=== PATIENT | female | born 1980 | race Caucasian/White ===

== ENCOUNTER 2021-01-13 16:31 | Outpatient (REF) | payer MEDICARE, MEDICAID, SELFPAY ==
--- NOTE | ~2021-01-13 | XR_ITS ---
EXAMINATION: XR TIBIA AND FIBULA, LEFT CLINICAL INFORMATION: M79.605 - Pain in left leg COMPARISON: None TECHNIQUE: AP and lateral views of the left tibia and fibula were obtained. IT issues at time of exam. Preliminary report provided 01/13/2021 at 1723 hours. FINDINGS: There is mild medial bowing mid fibular shaft on the AP view. There is no visible fracture line or fracture fragment or dislocation. Bony mineralization is normal. No periostitis or destructive process. Surrounding soft tissues are unremarkable. XR/XR tibia fibula LT 2V IMPRESSION: Mild medial bowing mid fibular shaft. No visible fracture or dislocation or destructive process.
== END 2021-01-13 16:32 | disposition home or self-care (01) ==
LOC: HO.HMGCX 16:31
PROVIDERS: Visit Provider Hospitalist
DX: M79.605 Pain in left leg (principal)
CPT/HCPCS: 73590

== ENCOUNTER 2022-03-28 14:53 | Emergency (ER) | payer OTHER, SELFPAY ==
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
[2022-03-28 15:14] VITALS: BP 101/44; PULSE 74; RESP 16; TEMP 36.6; O2SAT 100
== END 2022-03-28 16:25 | disposition home or self-care (01) ==
PROVIDERS: Emergency Provider Emergency Medicine
DX: R51.9 Headache, unspecified (principal)
CPT/HCPCS: 99282; 99283

== ENCOUNTER 2022-04-17 09:23 | Emergency (ER) | payer OTHER, SELFPAY ==
[2022-04-17 11:58] VITALS: BP 103/60; PULSE 60; RESP 16; TEMP 37; O2SAT 96; BMI 21.4
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
== END 2022-04-17 16:03 | disposition home or self-care (01) ==
PROVIDERS: Emergency Provider Internal Medicine; PCP Internal Medicine
DX: Z04.1 Encounter for examination and observation following transport accident (principal); M79.10 Myalgia, unspecified site; F41.9 Anxiety disorder, unspecified
CPT/HCPCS: 99282; 99283

== ENCOUNTER 2023-02-26 12:55 | Outpatient (AMB) | payer MEDICARE, MEDICAID, SELFPAY ==
[2023-02-26 13:43] VITALS: BP 100/68; PULSE 92; TEMP 36.9; O2SAT 100
--- NOTE | 2023-02-26 13:43 | MHC.OFFWIV ---
Intake Vital Signs 02/26/23 13:43 Height 5 ft 2 in BP 100/68 Blood Pressure Location Lt brachial Position Sitting Pulse 92 Pulse Source Pulse Oximeter Temp 98.5 F Temp Source Oral Pulse Oximetry (%) 100 Oxygen Delivery Method Room Air Intake Visit Reasons: EP ?UTI, Body ache, Fever, Puss Urine [phone] Patient Tobacco Use Status: Never used Tobacco Allergies albuterol [From VENTOLIN HFA] Allergy (Unknown, Verified 02/26/23 13:45) UNKNOWN carbamazepine [From TEGRETOL] Allergy (Unknown, Verified 02/26/23 13:45) UNKNOWN Do you need a note to return to daycare/school/sports/work: No HPI HPI Comments History of Present Illness Details For 42-year-old female presents to the office for a sick visit accompanied my her mother. Her mother is giving all history. The patient is deaf and legally blind and has developmental difficulties. According to the mom, patient has been complaining of burning urination for the past 5 days. Occasional fevers without any chills. She is also complaining of back pain. [facility] Social History Patient Tobacco Use Status: Never used Tobacco Physical Exam Vital Signs: Last Vital Signs Temp 98.5 F 02/26/23 13:43 Pulse 92 02/26/23 13:43 BP 100/68 02/26/23 13:43 Pulse Ox 100 02/26/23 13:43 Oxygen Delivery Method Room Air 02/26/23 13:43 General: Yes bladder normal to palpation and Yes no CVA tenderness Bimanual exam- vagina & uterus: bladder normal to palpation Back/Spine/Pelvis Back: no CVA tenderness Results AMB Urinalysis, Automated UA Leukoctes 70 Alayna/uL Last Edit by Suzy Gutierrez CMA on 02/26/23 14:17 UA Nitrite Negative Last Edit by Suzy Gutierrez CMA on 02/26/23 14:17 UA Urobilinogen 0.2 mg/dL Last Edit by Suzy Gutierrez CMA on 02/26/23 14:17 UA Protein 0 mg/dL Last Edit by Suzy Gutierrez CMA on 02/26/23 14:17 UA pH 8.5 Last Edit by Suzy Gutierrez CMA on 02/26/23 14:17 UA Blood 200 Raheem/uL Last Edit by Suzy Gutierrez, ESVIN on 02/26/23 14:17 UA Specific [place] 1.010 Last Edit by Suzy Gutierrez, ESVIN on 02/26/23 14:17 UA Ketone Negative Last Edit by Suzy Gutierrez, ESVIN on 02/26/23 14:17 UA Bilirubin 0 mg/dL Last Edit by Suzy Gutierrez, ESVIN on 02/26/23 14:17 UA Glucose 0 mg/dL Last Edit by Suzy Gutierrez, ESVIN on 02/26/23 14:17 Results Reviewed Results Reviewed: Laboratory Last Values Urine pH (Auto) 8.5 02/26/23 14:16 Specific [place] (Auto) 1.010 02/26/23 14:16 Urine Protein (Auto) 0 mg/dL 02/26/23 14:16 Glucose (UA)(Auto) 0 mg/dL 02/26/23 14:16 Urine Ketones (Auto) Negative 02/26/23 14:16 Urine Blood (Auto) 200 Raheem/uL 02/26/23 14:16 Urine Nitrite (Auto) Negative 02/26/23 14:16 Urine Bilirubin (Auto) 0 mg/dL 02/26/23 14:16 Urine Urobilinogen (Auto) 0.2 mg/dL 02/26/23 14:16 Leukocyte Esterase (Auto) 70 Alayna/uL 02/26/23 14:16 Assessment & Plan Assessment & Plan (1) Urinary tract infection: Code(s): N39.0 - Urinary tract infection, site not specified Plan: Antibiotic and Pyridium called in. Increase fluid intake. If symptoms do not improve to follow-up here. Orders: Orders AMB Urinalysis Automated Today Z13.9 - Encounter for screening, unspecified Coding Level of Care Code Est Pt Level 3 (35691) Diagnoses Urinary tract infection N39.0
== END 2023-02-26 15:14 | disposition home or self-care (01) ==
PROVIDERS: PCP Internal Medicine; Visit Provider Internal Medicine
DX: N39.0 Urinary tract infection, site not specified (principal); R30.9 Painful micturition, unspecified
CPT/HCPCS: 81003; 99213

== ENCOUNTER 2023-03-03 23:30 | Emergency (ER) | payer MEDICARE, MEDICAID, SELFPAY ==
--- NOTE | ~2023-03-03 | XR_ITS ---
EXAMINATION: XR ABDOMEN KUB CLINICAL INDICATION: Constipation. COMPARISON: None available. TECHNIQUE: AP view of the abdomen. FINDINGS: The bowel gas pattern is normal with no evidence of ileus or obstruction. There is retained stool throughout. No unusual soft tissue calcifications are noted. The bones are unremarkable. XR/XR KUB IMPRESSION: Nonspecific bowel gas pattern. Retained stool throughout.
[2023-03-03 23:39] VITALS: BP 100/55; PULSE 71; RESP 18; TEMP 36.3; O2SAT 100
[2023-03-03 23:41] VITALS: BP 100/55; BP 110/76; PULSE 71; PULSE 78; RESP 20; TEMP 36.3; O2SAT 100; O2SAT 98; BMI 23.6
[2023-03-04 00:08] LABS: Hematocrit 35.3 % (37.0-47.0); Hemoglobin 12.2 g/dl (12.0-16.0); Mean Corpuscular HGB Conc 34.6 g/dl (31.0-35.0); Mean Corpuscular Hemoglobin 29.9 pg (27.0-33.0); Mean Corpuscular Volume 86.5 fL (80.0-98.0); Mean Platelet Volume 11.5 fL (9.4-12.3); Platelet Count 110 X10*3/uL (160-400); Red Blood Count 4.08 X10*6/uL (4.20-5.50); Red Cell Distribution Width 12.2 % (11.0-16.0); White Blood Count 7.1 X10*3/uL (4.8-10.8)
[2023-03-04 01:27] LABS: Alanine Aminotransferase 5 U/L (0-31); Albumin Level 4.1 g/dL (3.5-5.0); Alkaline Phosphatase 73 U/L (39-117); Anion Gap 11 (12-20); Aspartate Amino Transferase 16 U/L (5-31); Bilirubin Total 0.4 mg/dL (0.0-1.0); Blood Urea Nitrogen 20 mg/dL (9-16); Calcium 9.3 mg/dL (8.4-10.2); Carbon Dioxide 21 mmol/L (22-29); Chloride 110 mmol/L (96-108); Creatinine Clr Calc Pharmacy 69.6; Estimated Glomerular Filt Rate > 60; Glucose Random 113 mg/dL (60-115); Potassium 3.8 mmol/L (3.3-5.1); Sodium 138 mmol/L (135-145); Total Protein 6.3 g/dL (6.5-8.0)
[2023-03-04 02:12] VITALS: BP 99/50; PULSE 66; RESP 18; TEMP 36.2; O2SAT 97
[2023-03-04 02:16] LABS: Appearance Urine Clear; Color Urine Yellow; Glucose Urine UA Negative (Negative); Leukocyte Esterase Urine Negative (Negative); Nitrite Urine Negative (Negative); PH 5.5 (5.0-9.0); Specific Gravity - Urine 1.025 (1.005-1.025); Urine Blood Negative (Negative); Urine Ketones 15 mg/dL (Negative); Urine Protein Negative (Neg-Trace)
[2023-03-04 02:21] LABS: Bacteria Urine None Seen (None Seen); Hyaline Casts Urine 0-2 /LPF (0-2); RBC Urine 0-2 /HPF (0-2); Squamous Epithelial Cell Urine 0-2 /HPF (0-2); WBC Urine 0-5 /HPF (0-5)
[2023-03-04 03:47] VITALS: BP 115/59; PULSE 66; RESP 18; TEMP 36.3; O2SAT 98
--- NOTE | 2023-03-04 03:54 | ED_ITS ---
HPI - General Adult General Chief complaint: General Medical Stated complaint: N/V Time Seen by Provider: 03/04/23 03:40 Source: patient and family Mode of arrival: ambulatory Limitations: no limitations History of Present Illness HPI narrative: Patient comes emergency room accompanied by her mother. Patient has d evelopmental delay. The mother explains that the patient has been complaining of dysuria. For about 5 days, patient has been taking Bactrim. Patient denies fever chills. Yesterday had several episodes of vomiting, no diarrhea. Also, patient complaining of constipation Related Data Home Medications Medication Instructions Recorded Confirmed multivitamin 1 tab PO DAILY 01/13/21 10/26/22 acetaminophen 650 mg 650 mg PO Q8H PRN pain 11/25/22 tablet,extended release azelastine 137 mcg (0.1 %) nasal intranasal 11/25/22 spray aerosol cetirizine 10 mg tablet 10 mg PO DAILY 11/25/22 cholecalciferol (vitamin D3) 25 25 mcg PO DAILY 11/25/22 mcg (1,000 unit) tablet (Vitamin D3) ciprofloxacin 0.3 %-dexamethasone 4 drp otic (ears) BID 11/25/22 0.1 % ear drops,suspension Previous Rx's Medication Instructions Recorded cyclobenzaprine 10 mg tablet 10 mg PO Q8H Muscular skeletal 04/17/22 pain #14 tabs fluconazole 150 mg tablet 150 mg PO DAILY 1 day #1 tab 11/25/22 (Diflucan) phenazopyridine 200 mg tablet 200 mg PO TID 3 days #9 tabs 02/26/23 (Pyridium) sulfamethoxazole 800 1 tab PO BID 7 days #14 tabs 02/26/23 mg-trimethoprim 160 mg tablet (Bactrim DS) ondansetron HCl 4 mg tablet 4 mg PO Q6H PRN nausea and 03/04/23 vomiting #14 tabs polyethylene glycol 3350 17 17 g PO BID PRN laxative effect 03/04/23 gram/dose oral powder (Miralax) #238 grams Allergies Allergy/AdvReac Type Severity Reaction Status Date / Time albuterol [From VENTOLIN HFA] Allergy Unknown UNKNOWN Verified 02/26/23 13:45 carbamazepine [From TEGRETOL] Allergy Unknown UNKNOWN Verified 02/26/23 13:45 Review of Systems Review of Systems: Constitutional : No Weight loss, No Fever, No Chills, No Night Sweats, No Fatigue, No Malaise ENT/Mouth : No Hearing loss, No Ear Pain, No Nasal Congestion, No Sinus Pain, No Hoarseness, No sore throat, No Rhinorrhea, No Swallowing Difficulty Eyes: No Eye Pain, No Swelling, No Redness, No Foreign Body, No Discharge, No Vision Changes Cardiovascular : No Chest Pain, No SOB, No Dyspnea on Exertion, No Orthopnea, No Edema, No Palpitations Respiratory : No Cough, No Sputum, No Wheezing, No Smoke Exposure, No Dyspnea Gastrointestinal : Complaining of nausea vomiting, no diarrhea, complaining of constipation, no significant abdominal pain Genitourinary : no irregular bleeding, No Dysuria, No Urinary Frequency, No Hematuria, No Urinary Incontinence, No Urgency, No Flank Pain, No Urinary Flow Changes, No Hesitancy Musculoskeletal : No joint pain, No Myalgias, No Joint Swelling Skin : No Skin Lesions, No rash Neuro : No Weakness, No Numbness, No Paresthesias, No Loss of Consciousness, No Dizziness, No Headache Psych : No Anxiety/Panic, No Depression, No SI/HI/AH/VH, No Social Issues, Heme/Lymph: No Bruising, No Bleeding,No Lymphadenopathy Endocrine : No Polyuria, No Polydipsia, No Temperature Intolerance [facility] Past Medical History Medical History (Updated 03/04/23 @ 05:18 by Johanny Moy MD) Cognitive developmental delay Epilepsy Social History Social History Patient Tobacco Use Status: Never used Tobacco Advance Directives: No Advance Directives Information Provided: No Physical Exam ED Vital Signs: Vital Signs - 24 hr 03/03/23 23:39 03/03/23 23:41 03/04/23 02:12 Temperature 97.3 F 97.3 F 97.1 F Pulse Rate 71 71 66 Respiratory Rate 18 20 18 Blood Pressure 100/55 L 100/55 L 99/50 L Pulse Oximetry 100 100 97 Oxygen Delivery Method Room Air Room Air Room Air 03/04/23 03:47 Temperature 97.3 F Pulse Rate 66 Respiratory Rate 18 Blood Pressure 115/59 L Pulse Oximetry 98 Oxygen Delivery Method Room Air BMI result Body Mass Index 23.6 Const Other: Appearance: Alert. Oriented X3. No acute distress. Patient well-appearing Eyes: Pupils equal, round and reactive to light. ENT: Pharynx normal. Neck: Normal inspection. Neck supple. No lymph nodes noted. No crepitus CVS: Normal heart rate and rhythm. Pulses normal. Normal S1 and S2 Respiratory: No respiratory distress. Breath sounds normal. No Wheezing. No rales Abdomen: Soft, no rigidity, distention, does not seem to have any tenderness on palpation Skin: Skin warm and dry. Normal skin color. Normal skin turgor. Extremities: No lower extremity edema. No Lacerations. No Rash Neuro: Oriented X 3. No motor deficit. No sensory deficit. Moving all extremities. No slurred speech. CN 2 through 12 grossly intact Psych: calm, cooperative, normal affect Medications Administered Discontinued Medications Generic Name Dose Route Start Last Admin Trade Name Freq PRN Reason Stop Dose Admin Ondansetron HCl 4 mg 03/04/23 04:00 03/04/23 04:40 Ondansetron Odt 4 Mg Tab.Rapdis TRANSLINGU 03/04/23 04:01 4 mg ONCE ONE Administration Medical Decision Making Medical Decision Making [facility] Narrative: -I discussed the labs with the patient and her mother, patient's white blood cell count is normal, no significant abnormality on chemistry, urinalysis is negative for UTI -patient instructed to continue taking Bactrim, patient has already had 5 days Bactrim, urine is clear of infection -patient given sublingual Zofran for nausea vomiting -KUB my interpretation: Significant amount of stool in the proximal aspect of the colon, no bowel obstruction pattern -patient only takes stool softeners, does not drink enough water, discussed with the patient and her mother that we will try this time MiraLax and she will need to drink more water for this to work both agree with plan. Differential Diagnosis Differential Diagnoses: The differential diagnosis associated with the presentation includes (Viral gastroenteritis, medication side effect, constipation) Lab Data [facility] Lab Attestation statement: I reviewed the patient's lab results. 03/04/23 00:01 03/04/23 00:01 Labs: Lab Results 03/04/23 03/04/23 03/04/23 Range/Units 00:01 00:01 02:08 WBC 7.1 (4.8-10.8) X10*3/uL RBC 4.08 L (4.20-5.50) X10*6/uL Hgb 12.2 (12.0-16.0) g/dl Hct 35.3 L (37.0-47.0) % MCV 86.5 (80.0-98.0) fL MCH 29.9 (27.0-33.0) pg MCHC 34.6 (31.0-35.0) g/dl RDW 12.2 (11.0-16.0) % Plt Count 110 L (160-400) X10*3/uL MPV 11.5 (9.4-12.3) fL Absolute Nucleated RBC 0.000 (0.0-0.012) X10*3/uL Nucleated RBC % (auto) 0.0 (0.0-0.2) /100WBC Sodium 138 (135-145) mmol/L Potassium 3.8 (3.3-5.1) mmol/L Chloride 110 H (96-108) mmol/L Carbon Dioxide 21 L (22-29) mmol/L Anion Gap 11 L (12-20) BUN 20 H (9-16) mg/dL Creatinine 0.81 (0.5-1.4) mg/dL Estim Creat Clear Calc 69.6 Estimated GFR > 60 Random Glucose 113 (60-115) mg/dL Calcium 9.3 (8.4-10.2) mg/dL Total Bilirubin 0.4 (0.0-1.0) mg/dL AST 16 (5-31) U/L ALT 5 (0-31) U/L Alkaline Phosphatase 73 (39-117) U/L Total Protein 6.3 L (6.5-8.0) g/dL Albumin 4.1 (3.5-5.0) g/dL Urine Color Yellow Urine Appearance Clear Urine pH 5.5 (5.0-9.0) Ur Specific [place] 1.025 (1.005-1.025) Urine Protein Negative (Neg-Trace) mg/dL Urine Glucose (UA) Negative (Negative) mg/dL Urine Ketones 15 (Negative) mg/dL Urine Blood Negative (Negative) Urine Nitrite Negative (Negative) Ur Leukocyte Esterase Negative (Negative) Urine RBC 0-2 (0-2) /HPF Urine WBC 0-5 (0-5) /HPF Ur Squamous Epith Cells 0-2 (0-2) /HPF Urine Bacteria None Seen (None Seen) Hyaline Casts 0-2 (0-2) /LPF Independent Interpretation I performed an independent interpretation of an: Plain X-Ray Radiology Impression Discussion of test interpretation with radiology: I have reviewed the radiologist's reading. Radiologist Impression: INDINGS: The bowel gas pattern is normal with no evidence of ileus or obstruction. There is retained stool throughout. No unusual soft tissue calcifications are noted. The bones are unremarkable. XR/XR KUB IMPRESSION: Nonspecific bowel gas pattern. ? Retained stool throughout. Discharge Plan Discharge Clinical Impression: Constipation Patient Disposition: Home, Self-Care Instructions: Constipation (ED), Acute Nausea and Vomiting (ED) Additional Instructions: Please follow-up with your primary care physician tomorrow. If you have any worsening or new symptoms, please return to the emergency room or call 911 Prescriptions: New polyethylene glycol 3350 [Miralax] 17 gram/dose powder 17 g PO BID PRN (Reason: laxative effect) Qty: 238 2RF ondansetron HCl 4 mg tablet 4 mg PO Q6H PRN (Reason: nausea and vomiting) Qty: 14 0RF No Action cyclobenzaprine 10 mg tablet 10 mg PO Q8H Qty: 14 0RF multivitamin Tablet 1 tab PO DAILY cholecalciferol (vitamin D3) [Vitamin D3] 25 mcg (1,000 unit) tablet 25 mcg PO DAILY cetirizine 10 mg tablet 10 mg PO DAILY azelastine 137 mcg (0.1 %) aerosol,spray intranasal acetaminophen 650 mg tablet extended release 650 mg PO Q8H PRN (Reason: pain) ciprofloxacin-dexamethasone 0.3-0.1 % drops,suspension 4 drp otic (ears) BID fluconazole [Diflucan] 150 mg tablet 150 mg PO DAILY 1 Days Qty: 1 0RF sulfamethoxazole-trimethoprim [Bactrim DS] 800-160 mg tablet 1 tab PO BID 7 Days Qty: 14 0RF phenazopyridine [Pyridium] 200 mg tablet 200 mg PO TID 3 Days Qty: 9 0RF
[2023-03-04] MEDS: Ondansetron ODT 4 MG TAB.RAPDIS TRANSLINGU (04:40)
--- NOTE | 2023-03-04 05:48 | PC.NURSE ---
pt mother at bedside. pt calm and cooperative. pt reports feeling better at time of discharge. pt provided with discharge packet. pt mother verbalized understanding of discharge plan
== END 2023-03-04 05:50 | disposition home or self-care (01) ==
PROVIDERS: Emergency Provider Emergency Medicine; PCP Internal Medicine
DX: K59.00 Constipation, unspecified (principal); R62.50 Unspecified lack of expected normal physiological development in childhood; R11.2 Nausea with vomiting, unspecified; Z79.899 Other long term (current) drug therapy
CPT/HCPCS: 36415; 74018; 80053; 81001; 85027; 99284

== ENCOUNTER 2023-07-20 10:18 | Outpatient (AMB) | payer MEDICARE, MEDICAID, SELFPAY ==
[2023-07-20 13:02] VITALS: BP 112/76; PULSE 98; TEMP 38.4; O2SAT 98; BMI 22.5
--- NOTE | 2023-07-20 13:02 | AM.OFFWIN_ITS ---
Intake Vital Signs 07/20/23 13:02 Height 5 ft 1 in Weight 119 lb BMI 22.5 BP 112/76 Blood Pressure Location Lt brachial Position Sitting Pulse 98 Pulse Source Pulse Oximeter Temp 101.1 F H Temp Source Temporal Artery Scan Pulse Oximetry (%) 98 Oxygen Delivery Method Room Air Intake Visit Reasons: EST/cough fever & body ache([phone]) Intake Note: pt is here today for cough fever and body aches started sunday Patient Tobacco Use Status: Never used Tobacco Allergies albuterol [From VENTOLIN HFA] Allergy (Unknown, Verified 07/20/23 13:11) UNKNOWN carbamazepine [From TEGRETOL] Allergy (Unknown, Verified 07/20/23 13:11) UNKNOWN Do you need a note to return to daycare/school/sports/work: Yes HPI HPI Comments History of Present Illness Details Mother presents with patient She started with symptoms Sunday sneezing Now she has body aches, cough Tried OTC medicine Cough produces some mucus Slight SOB + fever and fatigue + ST and abdominal pain She denies vomiting or diarrhea Father sick at home and negative PNA on xray today No tylenol or motrin taken today PFSH Medical History (Updated 07/20/23 @ 13:44 by Kirstie De La Rosa PA-C) Cognitive developmental delay Epilepsy Social History Patient Tobacco Use Status: Never used Tobacco Review of Systems Const Reports body aches, Reports chills, Reports fatigue, Reports fever(s) and Denies frequent falls ENT Denies dizziness, Denies otalgia, Reports nasal discharge, Denies sinus pressure, Reports sore throat and Denies throat swelling Card Denies chest pain Resp Reports chest congestion and Reports cough GI Reports abdominal pain (worse with coughing), Denies constipation, Denies diarrhea and Denies vomiting Denies difficulty voiding Musc Reports myalgias Neuro Denies dizziness and Denies frequent falls Endo Reports fatigue Aller/Immun Denies throat swelling Physical Exam Vital Signs: Last Vital Signs Temp 101.1 F H 07/20/23 13:02 Pulse 98 07/20/23 13:02 BP 112/76 07/20/23 13:02 Pulse Ox 98 07/20/23 13:02 Oxygen Delivery Method Room Air 07/20/23 13:02 BMI result Body Mass Index 22.5 General: Non-toxic, NAD. Speaking full sentences. Warm to the touch Skin: Warm dry throughout Eye: EOMI HENT: Airway patent. Uvula midline. No pharyngeal erythema or edema. No SENIOR EXAMINER. Bilateral canals clear. TM non-erythematous, non-bulging. No TM perforation or hemotympanum noted. Hearing aid L side. Respiratory: CTA bilaterally. No wheezes, rales or rhonchi Cardiac: RRR. No murmur Abdominal: BS present x 4. No tenderness to palpation. No rebound or guarding. MSK: Full ROM extremities. Neurology: A/O. No facial droop. Gait without abnormality Psych: Good mood and affect Results AMB Rapid Strep AMB Rapid Strep Negative Last Edit by Wayne Mayo CMA on 07/20/23 14 :44 Results Reviewed Results Reviewed: Laboratory Last Values Strep Scn Rapid Clinic Negative 07/20/23 14:44 Assessment & Plan Assessment & Plan (1) Fever: Code(s): R50.9 - Fever, unspecified Qualifiers: Fever type: unspecified Qualified Code(s): R50.9 - Fever, unspecified Plan: Patient seen and evaluated. Lungs CTA. No xray warranted at this time Strep: negative COVID: negative They wish to have RSV/flu/COVID swab completed Pt given 650mg tylenol po in office and swallowed without difficulty. She was [id number] after 30 minutes with tylenol and states feeling better. We discussed fluid hydration and fever control; tylenol refill given ED if onset of CP, SOB or any worsening/new symptoms Patient and mother gave verbal understanding and had no additional questions or concerns at time of discharge All questions answered Orders: Orders BinaxNOW Covid-19 Ag Today R50.9 - Fever, unspecified AMB Rapid Strep Screen Today Z13.9 - Encounter for screening, unspecified SARS-CoV2/FLU/RSV Today R50.9 - Fever, unspecified Medications: New acetaminophen ER 650 mg PO Q8H PRN 14 tabs 0RF pain Coding Level of Care Code Est Pt Level 3 (20998) Diagnoses Fever, unspecified fever cause R50.9 Fever type: unspecified
== END 2023-07-20 14:16 | disposition home or self-care (01) ==
PROVIDERS: PCP Internal Medicine; Visit Provider Physician Assistant
DX: R50.9 Fever, unspecified (principal); Z13.9 Encounter for screening, unspecified
CPT/HCPCS: 87880; 99213

== ENCOUNTER 2023-07-20 13:48 | Outpatient (REF) | payer MEDICARE, MEDICAID, SELFPAY ==
[2023-07-20 14:12] LABS: Binax Internal Control QC Valid; Binax Now Covid-19 Ag Negative (Negative); Binax Performed by: HO.BONILM
[2023-07-20 17:28] LABS: Influenza A PCR NEGATIVE (Negative); Influenza B PCR NEGATIVE (Negative); Resp Syncy Virus RNA Qual PCR NEGATIVE (Negative); SARS COV2 PCR INHOUSE NEGATIVE (Negative)
== END 2023-07-20 13:49 | disposition home or self-care (01) ==
LOC: HO.HMGCLDS 13:48
PROVIDERS: PCP Internal Medicine; Visit Provider Physician Assistant
DX: R50.9 Fever, unspecified (principal); Z20.828 Contact with and (suspected) exposure to other viral communicable diseases
CPT/HCPCS: 0241U; 87811

== ENCOUNTER 2023-08-03 09:14 | Outpatient (AMB) | payer MEDICARE, MEDICAID, SELFPAY ==
[2023-08-03 10:05] VITALS: BP 110/70; PULSE 71; TEMP 36.9; O2SAT 99; BMI 21.9
--- NOTE | 2023-08-03 10:05 | MHC.OFFWIV ---
Intake Vital Signs 08/03/23 10:05 Height 5 ft 1 in Weight 116 lb BMI 21.9 BP 110/70 Blood Pressure Location Lt brachial Position Sitting Pulse 71 Pulse Source Pulse Oximeter Temp 98.4 F Temp Source Temporal Artery Scan Pulse Oximetry (%) 99 Oxygen Delivery Method Room Air Intake Visit Reasons: EST/cough and kike (lobby masked) Intake Note: pt is here today for cough and congestion started Patient Tobacco Use Status: Never used Tobacco Allergies albuterol [From VENTOLIN HFA] Allergy (Unknown, Verified 08/03/23 10:06) UNKNOWN carbamazepine [From TEGRETOL] Allergy (Unknown, Verified 08/03/23 10:06) UNKNOWN Do you need a note to return to daycare/school/sports/work: Yes HPI HPI Comments History of Present Illness Details This is a 43-year-old female who presented to the walk-in clinic for a sick visit. History is obtained primarily via patient's mother as patient is hard of hearing. Patient's mother states that the patient has had viral URI symptoms including sneezing, sore throat, dry cough, nasal congestion, rhinorrhea with green/yellow discharge, and postnasal drip for approximately 3 weeks. Patient was evaluated at the walk-in clinic on 07/20/2023 and diagnosed with a viral URI with instructions for symptomatic management. The patient's mother states that patient has continued to have low-grade fever with worsening viral URI symptoms. Patient's mother states that she had an MRI brain ordered by her neurologist and the MRI showed sinusitis. [facility] Medical History (Updated 07/20/23 @ 13:44 by Kirstie De La Rosa PA-C) Cognitive developmental delay Epilepsy Social History Patient Tobacco Use Status: Never used Tobacco Review of Systems Const All systems reviewed & are unremarkable except as noted in HPI and below Reports no additional complaints Eyes Reports no additional complaints ENT Reports no additional complaints Card Reports no additional complaints Resp Reports no additional complaints GI Reports no additional complaints Reports no additional complaints Musc Reports no additional complaints Skin/Breast Reports system reviewed and no additional complaints, except as documented Neuro Reports no additional complaints Psych Reports no additional complaints Endo Reports no additional complaints Robert/Lymph Reports no additional complaints Aller/Immun Reports no additional complaints Physical Exam Vital Signs: Last Vital Signs Temp 98.4 F 08/03/23 10:05 Pulse 71 08/03/23 10:05 BP 110/70 08/03/23 10:05 Pulse Ox 99 08/03/23 10:05 Oxygen Delivery Method Room Air 08/03/23 10:05 BMI result Body Mass Index 21.9 Const Other: Vital signs reviewed. Constitutional: Non-toxic appearing. No acute distress. Well-developed and well-nourished. HEENT: Normocephalic and atraumatic. Tympanic membranes without erythema, edema, or bulging bilaterally. External auditory canals without erythema or edema bilaterally. Moist mucous membranes. No pharyngeal erythema or exudates. + Post-nasal drip. Skin: Warm and dry. No rashes or lesions noted. Neck: Full and painless range of motion. No cervical lymphadenopathy. Cardio: Regular rate and rhythm. No murmurs, gallops, or rubs. No lower extremity edema. No JVD. Pulmonary: No respiratory distress. No accessory muscle usage. Clear to auscultation bilaterally without wheezing, crackles, or rhonchi. Gastrointestinal: Soft, nontender, and nondistended in all 4 quadrants. Musculoskeletal: Normal range of motion in joints throughout the body. No deformity or other signs of injury. Neuro: Alert and oriented x4. Cranial nerves 2-12 grossly intact. No focal deficits appreciated. Psych: Normal mood and affect. Assessment & Plan Assessment & Plan (1) Acute bacterial rhinosinusitis: Code(s): J01.90 - Acute sinusitis, unspecified; B96.89 - Other specified bacterial agents as the cause of diseases classified elsewhere Plan This is a 43-year-old female who presented to the office complaining of persistent/worsening URI symptoms to include low-grade fevers, congestion/rhinorrhea, green/yellow nasal discharge, sore throat, and postnasal drip. She recently underwent an MRI brain which showed acute sinusitis and her neurologist recommended antibiotic treatment so she was brought to the walk-in by her mother. Her symptoms do appear to be consistent with acute bacterial rhinosinusitis given persistent symptoms and purulent nasal discharge as well as low-grade fevers. Patient sent home on p.o. amoxicillin/clavulanate 875/125 mg twice daily x7 days as well as fluticasone nasal spray. Continue symptomatic management including rest, increased fluids, advil/tylenol for pain/fever, and over the counter throat lozenges/decongestants. Patient advised to follow up here or go to the emergency room for worsening/persistent symptoms. Orders: Orders SARS-CoV2/FLU/RSV Today R09.89 - Other specified symptoms and signs involving the circulatory and respiratory systems Medications: New amoxicillin-pot clavulanate 875-125 mg 1 tab PO BID 14 tabs 0RF fluticasone propionate 50 mcg/actuation (Allergy Relief (fluticasone)) administer into each nostril 1 spray intranasal Q12H 16 grams 0RF Coding Level of Care Code Est Pt Level 3 (57928) Diagnoses Acute bacterial rhinosinusitis J01.90; B96.89
== END 2023-08-03 10:35 | disposition home or self-care (01) ==
PROVIDERS: PCP Internal Medicine; Visit Provider Physician Assistant Medical
DX: J01.90 Acute sinusitis, unspecified (principal); B96.89 Other specified bacterial agents as the cause of diseases classified elsewhere
CPT/HCPCS: 99213

== ENCOUNTER 2023-08-03 13:03 | Outpatient (REF) | payer MEDICARE, MEDICAID, SELFPAY ==
[2023-08-03 13:55] LABS: Influenza A PCR NEGATIVE (Negative); Influenza B PCR NEGATIVE (Negative); Resp Syncy Virus RNA Qual PCR NEGATIVE (Negative); SARS COV2 PCR INHOUSE NEGATIVE (Negative)
== END 2023-08-03 13:04 | disposition home or self-care (01) ==
LOC: HO.LNP 13:03
PROVIDERS: Visit Provider Physician Assistant Medical
DX: Z11.52 Encounter for screening for COVID-19 (principal); Z20.822 Contact with and (suspected) exposure to COVID-19; R09.89 Other specified symptoms and signs involving the circulatory and respiratory systems
CPT/HCPCS: 0241U

== ENCOUNTER 2025-01-05 15:19 | Outpatient (AMB) | payer MEDICARE, MEDICAID, SELFPAY ==
--- NOTE | 2025-01-05 15:23 | AM.OFFWIN_ITS ---
Intake Vital Signs 01/05/25 15:24 Height 5 ft 1 in Weight 123 lb 2 oz BMI 23.3 BP 122/72 Blood Pressure Location Rt brachial Position Sitting Pulse 86 Pulse Source Pulse Oximeter Temp 97.6 F Temp Source Oral Pulse Oximetry (%) 100 Oxygen Delivery Method Room Air Intake Visit Reasons: EP Fever, chills, body aches Intake Note: Pt presents to the office today for c/o fever,chills, body aches, and bilateral ear pain x4 days. Patient Tobacco Use Status: Never used Tobacco Allergies albuterol [From VENTOLIN HFA] Allergy (Unknown, Verified 01/05/25 15:30) UNKNOWN carbamazepine [From TEGRETOL] Allergy (Unknown, Verified 01/05/25 15:30) UNKNOWN HPI HPI Comments History of Present Illness Details 44 y/o Female patient who presents to [facility] walk in clinic with c/o URI symptoms for 4 days now. Pt is accompanied by Mother who provides history - Pt is Deaf with some mild mental disability. Mom reports that Patient has been c/o Subjective fevers, Body chills, body aches and B/L ear pain and pressure. Pt wears hearing Aids but due to pain, she has not been able to wear them. Denies Nausea or vomiting. Denies cough, CP, Chest tightness, SOB or wheezing. [facility] Medical History (Updated 01/05/25 @ 16:02 by Jyotsna Morales NP) Acute respiratory disease Cognitive developmental delay Epilepsy Social History Patient Tobacco Use Status: Never used Tobacco Review of Systems Const All systems reviewed & are unremarkable except as noted in HPI and below Physical Exam Vital Signs: Last Vital Signs Temp 97.6 F 01/05/25 15:24 Pulse 86 01/05/25 15:24 BP 122/72 01/05/25 15:24 Pulse Ox 100 01/05/25 15:24 Oxygen Delivery Method Room Air 01/05/25 15:24 BMI result Body Mass Index 23.3 Const General: comfortable and no acute distress Nutritional Appearance: well nourished Limitations: behavioral limitations HEENT Head: Yes normocephalic Ears: external ears normal and TM abnormal (Calcification build-up B/L TMs) bulging, with fluid behind the TM bilateral and scarred bilateral General nose exam: Abnormal mucous membranes and turbinates present erythematous Face and sinus: Yes sinuses nontender Mouth: moist mucous membranes Throat: Yes uvula midline Resp Effort & Inspection: normal respiratory effort and able to speak in complete sentences Auscultation: clear to auscultation bilaterally, no crackles, no rales, no rhonchi and no wheezes Cardio Heart sounds: S1 normal heart sound present and S2 normal heart sound present Assessment & Plan Assessment & Plan (1) Acute respiratory disease: Code(s): J06.9 - Acute upper respiratory infection, unspecified Plan: Acetaminophen for pain relief OTC Decongestants remedies. Coding Level of Care Code Est Pt Level 4 (28823) Diagnoses Acute respiratory disease J06.9 Time Spent (min) 20
[2025-01-05 15:24] VITALS: BP 122/72; PULSE 86; TEMP 36.4; O2SAT 100; BMI 23.3
--- OUTSIDE RECORDS SUMMARY | 2025-01-05 17:14 | XMS_ITS | Clinical Summary ---
Author Organization [address] Address [address] [place] [phone] Phone Care Team Providers Care Machine Setter Name Role Phone Yanet Hodges MD Primary Care Prov ider Allergies Active Allergy Reactions Criticality Noted Date Comments Albuterol Other 11/20/2013 Panic attack and anxiety Bee Pollen 01/02/2024 Covid-19 Vaccine, Bivalent, Mrna (Moderna) Rash 12/28/2020 Developed blister rash 4 hours after vaccine that lasted 2 weeks with residual markings ( Pfizer vaccine) Doxycycline 11/01/2015 diarrhea Octacosanol 01/02/2024 Medications Necon 0.5/35, 28, 0.5-35 mg-mcg per tablet Take 1 tablet by mouth 1 (one) time each day. 4 Active montelukast (SINGULAIR) 10 mg tablet Active levETIRAcetam (KEPPRA) 250 mg tablet TAKE 1 TABLET BY MOUTH DAILY AT BEDTIME FOR 1 WEEK THEN 1 TABLET TWICE DAILY DIRECTED 4 Active hydrOXYzine HCL (ATARAX) 25 mg tablet TOME 1 TABLETA POR V A ORAL TODOS LOS D AL ACOSTARSE 4 Active cyclobenzaprine (FLEXERIL) 5 mg tablet Take 1 tablet (5 mg total) by mouth. 3 Active azelastine (ASTELIN) 137 mcg (0.1 %) nasal spray Administer 2 sprays into affected nostril(s). 3 Active albuterol HFA (PROAIR HFA ; PROVENTIL HFA ; VENTOLIN HFA) 90 mcg/actuation inhaler Inhale 2 puffs by mouth. 3 Active loratadine (CLARITIN) 10 mg tablet TOME 1 TABLETA POR VIA ORAL TODOS LOS HAN[place] 90 tablet 1 4 Active docusate sodium (COLACE) 100 mg capsule TOME 1 CAPSULA POR VIA ORAL DOS VECES AL ODELL 180 capsule 1 4 Active fluticasone propionate (FLONASE) 50 mcg/actuation nasal spray 2 SPRAYS INTO EN CADA FOSA NASAL A DIARIO CUANDO SEA NECESARIO FOR RHINITIS 48 mL 5 Active cholecalciferol (Vitamin D3) 25 mcg (1,000 unit) tablet Take 1 tablet (1,000 Units total) by mouth 1 (one) time each day. 90 tablet 5 Active ondansetron ODT (ZOFRAN-ODT) 4 mg disintegrating tabletIndications: Otalgia of left ear Take 1 tablet (4 mg total) by mouth every 8 (eight) hours if needed for nausea or vomiting. 20 tablet 5 Active multivitamin (Daily-Oren, with folic acid,) tablet Take 1 tablet by mouth 1 (one) time each day. 90 tablet 1 5 Active clotrimazole-betam ethasone (LOTRISONE) 1-0.05 % cream Apply topically 2 (two) times a day. 30 g 5 Active famotidine (PEPCID) 20 mg tablet TOME 1 TABLETA POR VIA ORAL DOS VECES AL ODELL 180 tablet 1 5 Active famotidine (PEPCID) 20 mg tablet Take 1 tablet (20 mg total) by mouth 2 (two) times a day. 4 Active ibuprofen (ADVIL,MOTRIN) 600 mg tablet Take 1 tablet (600 mg total) by mouth every 6 (six) hours if needed for moderate pain. 60 tablet 1 5 Active Active Problems Problem Noted Date Diagnosed Date Menorrhagia with regular cycle 11/18/2024 Assessment & Plan (11/18/2024 11:48 AM EDT): Will obtain US, likely only transabdominal and discuss results when available. I encouraged use of ATC NSAIDS with onset of menses to help with cramping and decrease menstrual flow. Call if not helping and we can consider hormones. Vaginal discharge 11/18/2024 Assessment & Plan (11/18/2024 11:47 AM EDT): Normal findings today. Will send yeast culture to confirm no yeast. H. pylori infection 05/24/2024 Overview (05/24/2024): did not complete prevpac Repeat dx on egd at [facility] 02/26/15. Treated with recurrence 04/2015 ? Treatment Third or 4th regimen prescribe 07/05/15 levaquin 250bid, amoxicillin 100mg bid and omeprazole 20mg BID X14 days Legally blind 05/24/2024 Wears hearing aid in both ears 02/07/2024 Acute stress disorder 04/07/2022 Frequent headaches 03/24/2021 Overview (05/24/2024): Dr Vasquez History of COVID-19 07/29/2020 Seizure disorder ([facility] V24, 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 ACT is 20. No recent exacerbations or visits to ER. No night symptoms. We will continue albuterol as needed. Chronic otitis media 10/12/2012 Overview (05/24/2024): PE tubes since childhood Development delay 10/12/2012 Assessment & Plan (11/12/2024 12:15 PM EDT): Patient with a history of hypoxemia, Langerhans' cell histiocytosis, legally blind. Good performance overall, no disorganized behavior. Patient able to do some basic chores at home. Encounters Date Type Department Care Team Description 12/26/2024 Telephone Adult Medicine [address] [phone] Yanet Solis MD 11/19/2024 5:08 PM EDT - 11/19/2024 11:59 PM EDT Hospital Encounter Radiology Department - [address] [phone] Menorrhagia with regular cycle Discharge Disposition: Home or Self Care 11/18/2024 10:15 AM EDT Office Visit Obstetrics and Gynecology [address] [phone] Padmini Kennedy MD Menorrhagia with regular cycle (Primary Dx); Vaginal discharge 11/12/2024 9:45 AM EDT Office Visit Adult Medicine [address] [phone] Yanet Solis MD Recurrent acute suppurative otitis media with spontaneous rupture of left tympanic membrane (Primary Dx); Mild intermittent asthma, unspecified whether complicated; Development delay; Encounter for screening involving social determinants of health (SDoH) 11/03/2024 Telephone Obstetrics and Gynecology [address] [phone] Padmini Kennedy MD Menstrual Problem 10/20/2024 11:30 AM EDT Office Visit Adult Medicine [address] [phone] Brenda Menjivar NP Otalgia of left ear (Primary Dx); Development delay 10/17/2024 Telephone Adult Medicine [address] [phone] Kristi jewell, Yanet Zamudio MD Earache; Itching (Both ears); Ear Drainage (Water and pus) from Last 3 Months Immunizations Name Administration Dates Next Due Influenza Quadravalent, MDCK , 0.5ml, preservative free (Flucelvax) 6mo and older 04/12/2021,05/07/2019,03/29/2018 Influenza Quadravalent, chelsey mbinant, 0.5ml, preservative free (Flublok) 18yo and older 05/02/2020 Pneumococcal polysaccharide 23 valent (Pneumovax 23) 2yo and older 03/24/2014 Tdap Tetanus diptheria acell ular pertussis (Boostrix; Adacel) 7yo and older 04/09/2013 Surgical History Surgery Date Site/Laterality Comments TONSILLECTOMY 1991 PROCEDURE: HISTORICAL TONSILLECTOMY TYMPANOSTOMY TUBE PLACEMENT PROCEDURE: HISTORICAL PE TUBES Medical History Medical History Date Comments Epilepsy, nonconvulsive ([facility] V24, [facility] V28) DX:Epilepsy, nonconvulsive ( HCC) Helicobacter pylori (H. pylori) DX:Helicobacter pylori (H. pylori) Development delay 10/12/2012 DX:Development delay Langerhans' cell histiocytos is ([facility] V24, [facility]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 DX:Langerhans' cell histioc ytosis (HCC) Easy bruising 03/24/2014 DX:Easy bruising Vitamin D deficiency 03/27/2014 DX:Vitamin D deficiency Pain, abdominal 02/08/2015 DX:Pain, abdomin al hypoxic-ischemic encephalopathy ([facility] V28) 11/15/2015 DX: hypoxic-isch emic encephalopathy Legally blind DX:Legally blind Frequent headaches 03/24/2021 DX:Frequent h eadaches; COMMENT: Dr Vasquez Family History Medical History Relation Name Comments Glaucoma Aunt paternal aunt No Known Problems Brother 1 No Known Problems Brother 2 Stroke Father dementia, [place] Heart attack Maternal Grandfather Diabetes Maternal Grandmother HTN, ch olesterol No Known Problems Mother No Known Problems Paternal Grandfather No Known Problems Paternal Grandmother No Known Problems Sister Breast cancer Neg Hx Colon cancer Neg Hx Macular degeneration Neg Hx Ovarian cancer Neg Hx Strabismus Neg Hx Relation Name Status Comments Aunt Brother 1 Alive Brother 2 Alive Father Alive Maternal Grandfather Maternal Grandmother Mother Alive Paternal Grandfather Paternal Grandmother Sister Alive Social History Tobacco Use Types Packs/Day Years Used Date Smoking Tobacco: Never Smokeless Tobacco: Never Tobacco Cessation:Counseling Given: Not Answered Alcohol Use Standard Drinks/Week Comments No 0 (1 standard drink = 0.6 oz pur e alcohol) Housing Instability Answer Date Recorde d Are you worried that in the next 2 months you may not have stable housing? No 11/12/2024 Food Access & Nutrition Answer Date Rec orded Do you have access to a vari ety of food including fruits and vegetables? Yes 11/12/2024 Health Literacy Answer Date Recorded How often do you need to hav e someone help you when you read instructions, pamphlets, or other written material from your doctor or pharmacy? Never 11/12/2024 Caregiver: How often do you need to have someone help you when you read instructions, pamphlets, or other written material from your doctor or pharmacy? Not on file 11/12/2024 Financial Risk Answer Date Recorded How hard is it for you to pa y for the very basics like food, housing, medical care, and air conditioning / heating? Not very hard 11/12/2024 Transportation Answer Date Recorded Has the lack of transportati on kept you from meetings, work, or from getting things needed for daily living? No Has the lack of transportati on kept you from medical appointments or from getting medications? No 11/12/2024 Social Isolation Answer Date Recorded How often do you feel lonely or isolated from th ose around you? Never 11/12/2024 Food Risk Answer Date Recorded Within the past 12 months we worried whether our food would run out before we got money to buy more. Never true 11/12/2024 Within the past 12 months th e food we bought just didn't last and we didn't have money to get more. Never true 11/12/2024 Dependent Care Answer Date Recorded Do you need help finding or paying for care for your loved ones. For example, child & adolescent psychiatrist or elderly care for an older adult? No 11/12/2024 Education Answer Date Recorded Do you think completing more education or training, like finishing a GED, going to college, or learning a trade, would be helpful for you? No 11/12/2024 Employment and Income Answer Date Recor ded During the last four weeks, have you been actively looking for work? No 11/12/2024 Living Situation Answer Date Recorded What is your living situation? 0 11/12/2024 Comments Unknown Sex and Gender Information Value Date Recorded Sex Assigned at Not on file Legal Sex Female 1:32 AM EST Gender Identity Not on file Sexual Orientation Not on file Obstetrics History Para Term AB IAB SAB Ectopic Multiple Livin g Live Births 0 0 0 0 0 0 0 0 0 0 0 Last Filed Vital Signs Vital Sign Reading Time Taken Comments Blood Pressure 106/52 11/18/2024 10:23 AM EDT Pulse 75 11/18/2024 10:23 AM EDT Temperature 36.7 ??C (98.1 ??F) 11/12/2024 9:16 AM ED T Respiratory Rate 14 11/18/2024 10:23 AM EDT Oxygen Saturation 99% 10/20/2024 11:39 AM EDT Inhaled Oxygen Concentration - - Weight 55.3 kg (122 lb) 11/18/2024 10:23 AM EDT Height 157.5 cm (5' 2 ) 11/12/2024 9:16 AM EDT Body Mass Index 22.31 11/12/2024 9:16 AM EDT Plan of Treatment Upcoming Encounters Date Type Department Care Team (Late st Contact Info) Description 02/09/2025 7:30 AM EDT Office Visit Adult Medicine [address] [phone] Yanet Hodges MD [address] [place] [phone] 05/27/2025 4:30 PM EST Appointment Radiology Department - [place] [address] [place] [phone] Health Maintenance Due Date Last Done Comments Hepatitis B Vaccines (1 of 3 - 19+ 3-dose series) 2001 Cervical Cancer Screening: HPV 2003 Pneumococcal Vaccine: Pediatrics (0 to 5 Years) and At-Risk Patients (6 to 64 Years) (2 of 2 - PCV) 03/24/2015 03/24/2014 HIV Screening 07/01/2022 Hepatitis C Screening 07/01/2022 Medicare Annual Wellness Visit 07/01/2022 DTaP,Tdap,and Td Vaccines (2 - Td or Tdap) 04/09/2023 04/09/2013 COVID-19 Vaccine (2 - 2023- season) 2024 11/13/2020 Depression Screening 02/06/2025 02/07/2024 Breast Cancer Screening 02/14/2025 02/14/2023 Influenza Vaccine (Season Ended) 2025 04/12/2021, 05/02/2020, 05/07/2019, Additional history exists Social Influencers of Health Screening 11/12/2025 11/12/2024 Cholesterol Screening (Lipid Panel) 04/23/2029 04/23/2024 HIB Vaccines Aged Out No longer eligi ble based on patient's age to complete this topic HPV Vaccines Aged Out No longer eligi ble based on patient's age to complete this topic Hepatitis A Vaccines Aged Out No long er eligible based on patient's age to complete this topic IPV Vaccines Aged Out No longer eligi ble based on patient's age to complete this topic MMR Vaccines Aged Out No longer eligi ble based on patient's age to complete this topic Meningococcal ACWY Vaccine Aged Out N o longer eligible based on patient's age to complete this topic Meningococcal B Vaccine Aged Out No l onger eligible based on patient's age to complete this topic RSV Immunization Patients Under 20 months Aged Out No longer eligible based on patient's age to complete this topic Varicella Vaccines Aged Out No longer eligible based on patient's age to complete this topic Procedures Procedure Name Priority Date/Time Associated Diagnosis Comments US PELVIS NON OB COMPLETE Routine 11/19/2024 5:48 PM EDT Menorrhagia with regular cycle POC WET MOUNT Routine 11/18/2024 11:46 AM EDT Vaginal discharge POC MITCH TEST, HAIR/SKIN/NAILS Routine 11/18/2024 11:46 AM EDT Vaginal discharge CULTURE GENITAL Routine 11/18/2024 11:02 AM EDT Vaginal discharge SCREENING MAMMOGRAPHY BI 2-VIEW BREAST INC CAD Routine 02/14/2023 9:25 AM EDT Encounter for screening mammogram for malignant neoplasm of breast from Last 3 Months or Most Recently Relevant to Health Maintenance Results * US Pelvis Non OB Complete (11/19/2024 5:48 PM EDT) Anatomical Region Laterality Modality Body, Pelvis Ultrasound 11/20/2024 9:00 AM EDT Impressions 11/20/2024 9:01 AM EDT 1. ??Endometrial stripe measures 0.6 cm which is within normal limits in a premenopausal female. -------- FINAL REPORT -------- Dictated By: Tisha Ward Dictated Date: 11/20/2024 09:00 ET Assigned Physician: Tisha Ward Reviewed and Electronically Signed By: Tisha Ward Signed Date: 11/20/2024 09:01 ET Workstation ID: [id number] Transcribed By: Self Edit Transcribed Date: 11/20/2024 09:00 ET Narrative 11/20/2024 9:01 AM EDT EXAM: TRANSABDOMINAL PELVIC ULTRASOUND HISTORY: menorrhagia with regular cycle COMPARISON: Ultrasound pelvis from 10/03/2023 Technique: Grayscale and Doppler images of the pelvis were obtained using transabdominal approach. ??Patient is not a transvaginal candidate. FINDINGS: The uterus is normal in size and measures 6.8 x 3.3 x 4.2 cm. The normal in caliber endometrial stripe measures up to 0.6 cm. The myometrium is unremarkable. No fibroids visualized. Right ovary measures 2.0 x 1.4 x 1.9 cm and is sonographically unremarkable. Left ovary measures 2.5 x 1.8 x 2.0 cm and is also sonographically unremarkable. No free fluid. Procedure Note Tisha Ward MD - 11/20/2024 EXAM: TRANSABDOMINAL PELVIC ULTRASOUND HISTORY: menorrhagia with regular cycle COMPARISON: Ultrasound pelvis from 10/03/2023 Technique: Grayscale and Doppler images of the pelvis were obtained usingtransabdominal approach. Patient is not a transvaginal candidate. FINDINGS: The uterus is normal in size and measures 6.8 x 3.3 x 4.2 cm. The normalin caliber endometrial stripe measures up to 0.6 cm. The myometrium isunremarkable. No fibroids visualized. Right ovary measures 2.0 x 1.4 x 1.9 cm and is sonographicallyunremarkable. Left ovary measures 2.5 x 1.8 x 2.0 cm and is also sonographicallyunremarkable. No free fluid. IMPRESSION: 1. Endometrial stripe measures 0.6 cm which is within normal limits in apremenopausal female. -------- FINAL REPORT -------- Dictated By: Tisha Ward Dictated Date: 11/20/2024 09:00 ET Assigned Physician: Tisha Ward Reviewed and Electronically Signed By: Tisha Ward Signed Date: 11/20/2024 09:01 ET Workstation ID: [id number] Transcribed By: Self Edit Transcribed Date: 11/20/2024 09:00 ET Padmini Kennedy MD IMG US PROCEDURES Final Res ult * POC MITCH TEST, Hair/Skin/Nails (11/18/2024 11:46 AM EDT) MITCH POC Negative Vaginal Fluid 11/18/2024 11: 46 AM EDT Padmini Kennedy MD POINT OF CARE TEST ENTER/ED IT ORDERABLES Final Result * POC Wet Mount (11/18/2024 11:46 AM EDT) Trichomonas, Wet Prep POC Absent Absent Yeast, Wet Prep POC Negative Not Applicable, Negative Clue Cells, Wet Prep POC Negative Not Applicable, Negative WBC, Wet Prep POC Negative Not Applicable, Negative RBC, Wet Prep POC Negative Not Applicable, Negative Bacteria, Wet Prep POC Negative Not Applicable, Negative Whiff Test, Wet Prep POC Negative Not Done, Negative PH FL Type POC 4.5 Vaginal Fluid Vaginal structure / Unknown 11/18/2024 11:46 AM EDT us Padmini Kennedy MD POINT OF CARE TEST ENTER/ED IT ORDERABLES Final Result * (ABNORMAL) Culture genital (11/18/2024 11:02 AM EDT) Culture, Genital Jojo albicans/du bliniensis( A) 11/21/2024 11:08 AM EDT [facility] Comment: The organism value for this result has been updated. These results have been appended to the previously preliminary verified report. Edited result: Previously reported as Yeast on 11/20/2024 at 1058 EDT. Swab Vaginal structure / Unknown Non-blood Collection / Unknown 11/18/2024 11:02 AM EDT 11/18/2024 11:02 AM EDT us Padmini Kennedy MD LAB MICROBIOLOGY - GENERAL ORDERABLES Final Result [facility] [address] [place] [address], * SCREENING MAMMOGRAPHY BI 2-VIEW BREAST INC CAD (02/14/2023 9:25 AM EDT) Anatomical Region Laterality Modality Radiographic Diandra ging 10/04/2022 9:31 AM EDT Narrative 02/14/2023 5:25 PM EDT This is a summary report. The complete report is available in the patient's medical record. If you cannot access the medical record, please contact the sending organization for a detailed fax or copy. BILATERAL 3D DIGITAL SCREENING MAMMOGRAM History: Routine screening. ??No current breast complaints. Comparison: Baseline Technique: Bilateral full-field digital 3D mammography was performed using standard CC and MLO projections, exaggerated cc view bilateral CAD was used to evaluate this mammogram. Findings: Density: ?? The breasts are heterogeneously dense which may obscure small masses-C RIGHT: No suspicious masses, groups of microcalcification or areas of architectural distortion identified. Typically benign parenchymal asymmetries LEFT: No suspicious masses, groups of microcalcifications or areas of architectural distortion identified. Typically benign parenchymal asymmetries IMPRESSION: : 1. ??No mammographic evidence of malignancy. BI-RADS Category 2 benign findings Recommendation: Routine annual screening mammography is recommended Procedure Note Tisha Ward MD - 08/28/2023 This is a summary report. The complete report is available in thepatient's medical record. If you cannot access the medical record, pleasecontact the sending organization for a detailed fax or copy. BILATERAL 3D DIGITAL SCREENING MAMMOGRAM History: Routine screening. No current breast complaints. Comparison: Baseline Technique: Bilateral full-field digital 3D mammography was performed usingstandard CC and MLO projections, exaggerated cc view bilateral CAD was used to evaluate this mammogram. Findings: Density: The breasts are heterogeneously dense which may obscure smallmasses-C RIGHT: No suspicious masses, groups of microcalcification or areas ofarchitectural distortion identified. Typically benign parenchymalasymmetries LEFT: No suspicious masses, groups of microcalcifications or areas ofarchitectural distortion identified. Typically benign parenchymalasymmetries IMPRESSION: : 1. No mammographic evidence of malignancy. 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
== END 2025-01-05 16:05 | disposition home or self-care (01) ==
PROVIDERS: PCP Internal Medicine; Visit Provider Nurse Practitioner Family
DX: J06.9 Acute upper respiratory infection, unspecified (principal)

== ENCOUNTER → 2025-01-05 15:19 | Outpatient (BNVA) | payer MEDICARE, MEDICAID, SELFPAY | PROVIDERS: PCP Internal Medicine; Visit Provider Nurse Practitioner Family | DX: J06.9 Acute upper respiratory infection, unspecified (principal) | CPT/HCPCS: 99212 ==

== ENCOUNTER 2025-02-25 12:10 | Outpatient (AMB) | payer MEDICARE, MEDICAID, SELFPAY ==
--- NOTE | 2025-02-25 12:13 | MHC.OFFWIV ---
Intake Vital Signs 02/25/25 12:26 Weight 122 lb BP 98/60 Blood Pressure Location Lt brachial Position Sitting Pulse 62 Pulse Source Pulse Oximeter Temp 97.6 F Temp Source Oral Pulse Oximetry (%) 100 Oxygen Delivery Method Room Air Intake Visit Reasons: EP UTI? Intake Note: presents with body chills, low abdominal pain and pain with urinating Patient Tobacco Use Status: Never used Tobacco Allergies albuterol (From VENTOLIN HFA) Allergy (Unknown, Verified 02/25/25 12:27) UNKNOWN carbamazepine (From TEGRETOL) Allergy (Unknown, Verified 02/25/25 12:27) UNKNOWN Do you need a note to return to daycare/school/sports/work: No HPI HPI Comments History of Present Illness Details History of Present Illness - The patient is a 44-year-old female presenting with her mother who is her caregiver and gives the history for hematuria. - Mother states that she has been experiencing sinus issues for over a week, initially managed with nasal spray and allergy medication at home. - Fever and chills were noted, treated with NyQuil and Tylenol, with some improvement observed. - Hematuria was reported once last night, with associated dysuria and vaginal itching and it upset the patient. - Recurrent vaginal yeast infections are noted, possibly due to inadequate hygiene. - Mom states that there is a white coating on the tongue. - She has been eating and drinking. - She was worried that she had a UTI or a yeast infection. - Does not get her menses. - She denies fever, chills, CP, SOB, back pain, vaginal discharge, or history of kidney stones. Physical Exam General: Cooperative, healthy appearing, comfortable, no acute distress and well developed Eyes: Appearance normal, both eyes and all related structures Mouth: White coating on the tongue. Neck: Normal visual inspection and Yes full ROM Respiratory: Normal respiratory effort and able to speak in complete sentences. Clear to auscultation bilaterally Cardiovascular: Regular rate and rhythm. Normal S1 and S2 GI: Normal to inspection. Soft to palpation and nontender. No guarding noted. No CVA tenderness noted. Skin: No rashes or lesions noted Patient was informed and verbally consented to the use of an ambient scribe for clinic note documentation during this visit. [facility] Medical History (Updated 01/05/25 @ 16:02 by Jyotsna Morales NP) Acute respiratory disease Cognitive developmental delay Epilepsy Social History Patient Tobacco Use Status: Never used Tobacco Review of Systems Const All systems reviewed & are unremarkable except as noted in HPI and below Physical Exam Vital Signs: Last Vital Signs Temp 97.6 F 02/25/25 12:26 Pulse 62 02/25/25 12:26 BP 98/60 02/25/25 12:26 Pulse Ox 100 02/25/25 12:26 Oxygen Delivery Method Room Air 02/25/25 12:26 Results AMB Urinalysis, Automated UA Leukoctes 0 Alayna/uL Last Edit by Elizabeth Tate MA on 02/25/25 13:39 UA Nitrite Negative Last Edit by Elizabeth Tate MA on 02/25/25 13:39 UA Urobilinogen 0.2 mg/dL Last Edit by Elizabeth Tate MA on 02/25/25 13:39 UA Protein 0 mg/dL Last Edit by Elizabeth Tate MA on 02/25/25 13:39 UA pH 6.0 Last Edit by Elizabeth Tate MA on 02/25/25 13:39 UA Blood 0 Raheem/uL Last Edit by Elizabeth Tate MA on 02/25/25 13:39 UA Specific Speculator 1.015 Last Edit by Elizabeth Tate MA on 02/25/25 13:39 UA Ketone Negative Last Edit by Elizabeth Tate MA on 02/25/25 13:39 UA Bilirubin 0 mg/dL Last Edit by Elizabeth Tate MA on 02/25/25 13:39 UA Glucose 0 mg/dL Last Edit by Elizabeth Tate MA on 02/25/25 13:39 Results Reviewed Results Reviewed: Laboratory Last Values Urine pH (Auto) 6.0 02/25/25 13:38 Specific Speculator (Auto) 1.015 02/25/25 13:38 Urine Protein (Auto) 0 mg/dL 02/25/25 13:38 Glucose (UA)(Auto) 0 mg/dL 02/25/25 13:38 Urine Ketones (Auto) Negative 02/25/25 13:38 Urine Blood (Auto) 0 Raheem/uL 02/25/25 13:38 Urine Nitrite (Auto) Negative 02/25/25 13:38 Urine Bilirubin (Auto) 0 mg/dL 02/25/25 13:38 Urine Urobilinogen (Auto) 0.2 mg/dL 02/25/25 13:38 Leukocyte Esterase (Auto) 0 Alayna/uL 02/25/25 13:38 Assessment & Plan Assessment & Plan (1) Thrush: Code(s): B37.0 - Candidal stomatitis (2) Vaginal itching: Code(s): N89.8 - Other specified noninflammatory disorders of vagina Plan UA in the office today was negative Likely yeast infection due to not wiping well when she uses the bathroom Plan - Antifungal treatment will be initiated for oral thrush and vaginal yeast infection. - A urine culture will be performed to check for bacterial infection. - Will call with results - tylenol or motrin as needed for pain - follow up with PCP Orders: Orders Urine Culture Today N39.0 - Urinary tract infection, site not specified AMB Urinalysis Automated Today Z13.9 - Encounter for screening, unspecified Medications: New nystatin administer 1/2 of dose in each side of the mouth 5 mL buccal qid 140 mL 0RF 7 days fluconazole may repeat second dose 72 hrs after first dose if symptoms persist 150 mg PO Q3D 2 tabs 0RF Coding Level of Care Code Est Pt Level 4 (32771) Diagnoses Thrush B37.0 Vaginal itching N89.8
[2025-02-25 12:26] VITALS: BP 98/60; PULSE 62; TEMP 36.4; O2SAT 100
--- OUTSIDE RECORDS SUMMARY | 2025-02-25 12:53 | XMS_ITS ---
Author Name [facility] Organization Unknown Care Team Organization Name Specialty Phone Email Start Date End Da te [facility] 07/04/20232023 [facility] 09/27/2022 03/10/2024 [facility] 05/30/2022 03/10/20 24
--- OUTSIDE RECORDS SUMMARY | 2025-02-25 12:53 | XMS_ITS | Encounter Summary ---
Author Organization [facility] Address [address] [place] [address] Care Team Providers Care Cardiac Monitor Technician Name Role Phone Yanet Hodges MD Primary Care Prov ider Reason for Visit * Reason Onset Date Comments Fever 02/25/2025 Urinary Problem 02/25/2025 Bloated 02/25/2025 Throat Problem 02/25/2025 Encounter Details Date Type Department Care Team ([facility] Contact Info) Description 02/25/2025 Telephone Adult Medicine [address] [phone] Yanet Hodges MD [address] [place] [phone] Fever; Urinary Problem; Bloated; Throat Problem Social History Tobacco Use Types Packs/Day Years Used Date Smoking Tobacco: Never Smokeless Tobacco: Never Alcohol Use Standard Drinks/Week Comments No 0 [...] for your loved ones. For example, child care center administrator or elderly care for an older adult? [...] on file Sexual Orientation Not on file documented as of this encounter Progress Notes * Rachel Puente RN - 02/25/2025 10:51 AM EDT Sore throat and gave her tylenol and Nyquil and feeling better Face was swelling and given sinus medication and was feeling better. The swelling in the face went down also No fevers noted ut feels warm on/off. Now with urinating she has burning sensation and blood in the urine Offered appt in and mother stated that she will take her to local * Mulugeta Pham - 02/25/2025 10:21 AM EDT Patient call requires triage: Symptoms patient is presenting: Urination problem, fever, abdominal pressure (bloating), throat problems. How long has patient had these symptoms?: 3 days For ALL patients calling to schedule any appointment (routine, sick visit, follow up, consult, etc.) in the outpatient setting please ask the following questions: Do you have fever of higher than 101, sore throat with difficulty swallowing or severe shortness ofbreath? Yes, did not check for fever but patient is warm temperature. If YES to any of these above symptoms, send a message to triage and do not book. Red dot. If no, an audio or video visit should be booked. Have you had close contact with someone with Coronavirus in the last 14 days? no Have you traveled abroad? no Have you traveled recently to another state outside of [place], [place], [place], [place], [place], [place], [place]? no o If yes, did you quarantine for 14 days or have a negative covid test? no If yes to any of the above, patient is not to be scheduled in office until after 14 day quarantine or negative covid test. If pain or injury related was it due to an accident at work or from a motor vehicle accident? If yes, date of accident/Injury: No If yes, gather 3rd alliance party insurance information Third Green Party Information: not applicable PCP: Yanet Reynolds MD Payor: MEDICARE / Plan: MEDICARE PART A & B / Product Type: Medicare / documented in this encounter Plan of Treatment Upcoming Encounters Date Type Department Care Team (Late st Contact Info) Description 04/30/2025 12:30 PM EDT Office Visit Adult Medicine [address] [phone] Yanet Hodges MD [address] [place] [phone] 05/27/2025 4:30 PM EST Appointment Radiology Department - [address] [phone] documented as of this encounter Visit Diagnoses Not on filedocumented in this encounter Care Teams Cardiac Monitor Technician Relationship Specialty Start Date End Date Yanet Hodges MD [address] [place] [phone] PCP - General Internal Medicine 02/20/22 documented as of this encounter
--- OUTSIDE RECORDS SUMMARY | 2025-02-25 12:53 | XMS_ITS | Clinical Summary ---
Author Organization [employer] Address [address] [facility] [address] [place] [address] Care Team Providers Care Archery Equipment Repairer Name Role Phone Unavailable Primary Care Provider Unavailabl e Allergies Active Allergy Reactions Criticality Noted Date Comments Albuterol 10/20/2017 [place] 01/28/2024 Carbamazepine 10/20/2017 Cat Dander 01/02/2024 Dog Epithelium 01/02/2024 Pollen Extract 01/02/2024 Octacosanol 01/02/2024 Medications benzonatate (Tessalon) 100 MG capsule TAKE 1 CAPSULE BY MOUTH 3 TIMES DAILY NEEDED FOR COUGH FOR UP TO 5 DAYS. 3 Active docusate sodium (Colace) 100 MG capsule TOME 1 C PSULA POR V A ORAL DOS VECES AL D A 4 Active hydrOXYzine HCl (Atarax) 25 MG tablet Take 25 mg by mouth at bedtime. 4 Active levETIRAcetam (Keppra) 250 MG tablet TAKE 1 TABLET BY MOUTH DAILY AT BEDTIME FOR 1 WEEK THEN 1 TABLET TWICE DAILY DIRECTED 4 Active montelukast (Singulair) 10 MG tablet Active loratadine (Claritin) 10 MG tablet TAKE 1 TABLET BY MOUTH ONCE DAILY (NOT COVERED) 3 Active Multiple Vitamin (multivitamin) capsule Active ondansetron ODT (Zofran-ODT) 4 MG disintegrating tablet Take 4 mg by mouth every 8 (eight) hours if needed. 4 Active polyethylene glycol, PEG, 3350 (Glycolax) 17 GM/SCOOP powder PLEASE SEE ATTACHED FOR DETAILED DIRECTIONS 3 Active famotidine (Pepcid) 20 MG tablet TOME TRACEY TABLETA DOS VECES AL D A 3 Active cholecalciferol (Vitamin D3) 200 Unit tablet split tablet Active amoxicillin (Amoxil) 500 MG tablet TOME 1 TABLETA POR V A ORAL CADA 8 HORAS FOR 7 DAYS. 4 Active acetaminophen (Tylenol 8 Hour) 650 MG ER tablet Take 650 mg by mouth every 8 (eight) hours if needed. 4 Active Active Problems No known active problems Encounters Date Type Department Care Team Description 01/02/2025 Outside Procedure [facility] [address] [place] [address] Robert, Adelita, OD Hyperopia of right eye (Primary Dx) 01/01/2025 9:15 AM EDT Office Visit [facility] [address] [place] [address] Robert, Adelita, OD Regular astigmatism of both eyes (Primary Dx) from Last 3 Months Social History Tobacco Use Types Packs/Day Years Used Date Smoking Tobacco: Never Smokeless Tobacco: Never Tobacco Cessation:Counseling Given: Not Answered Comments Unknown Sex and Gender Information Value Date Recorded Sex Assigned at Female 01/02/2024 3:23 PM EDT Legal Sex Female 3:21 PM EDT Gender Identity Female 01/02/2024 3:26 PM EDT Sexual Orientation Choose not to disclose 2023 3:23 PM EDT Plan of Treatment Health Maintenance Due Date Last Done Comments Dental Oral Exam 1982 Dental Prophylaxis 1982 Dental X-Ray: Full Mouth 1982 Depression Screening 1982 HIV Screening 1982 SDOH Screening 1982 Disability Screening 1982 Alcohol/Substance Use Screening 1994 Family Planning (PISQ) 1997 HPV Vaccines (1 - 3-dose series) 1997 Hepatitis C Screening 2000 Hepatitis B Vaccines (1 of 3 - 19+ 3-dose series) 2001 Pap Smear 2003 Cervical Cancer Screening 2012 HPV/Cotest 2012 Pneumococcal Vaccine: Pediatrics (0 to 5 Years) and At-Risk Patients (6 to 49) Years (2 of 2 - PCV) 03/24/2015 03/24/2014 Mammogram 2022 DTaP/Tdap/Td Vaccines (2 - Td or Tdap) 04/09/2023 04/09/2013 COVID-19 Vaccine ( season) 2024 11/13/2020 Dental X-Ray: Bitewings 01/02/2025 01/02/2024 Influenza Vaccine (#1) 2025 , 05/02/2020, 05/07/2019, Additional history exists Tobacco Screening 09/23/2025 09/23/2024 Zoster Vaccines (1 of 2) 2032 RSV Patients and Patients Aged 60 years or older (1 - 1-dose 75+ series) 2057 HIB Vaccines Aged Out No longer eligi [...] patient's age to complete this topic Meningococcal Vaccine Aged Out No vidhi sharron eligible based on patient's age to complete this topic RSV under 20 months Aged Out No longe r eligible based on patient's age to complete this topic Rotavirus Vaccines Aged Out No longer eligible based on patient's age to complete this topic Procedures Procedure Name Priority Date/Time Associated Diagnosis Comments BITEWING - SINGLE RADIOGRAPHIC IMAGE Routine 01/02/2024 3:30 PM EDT from Last 3 Months or Most Recently Relevant to Health Maintenance Insurance [facility] STANDARD MEDICARE [place]AND AD[place]
== END 2025-02-25 13:24 | disposition home or self-care (01) ==
PROVIDERS: PCP Internal Medicine; Visit Provider Physician Assistant Medical
DX: B37.0 Candidal stomatitis (principal); N89.8 Other specified noninflammatory disorders of vagina; Z13.9 Encounter for screening, unspecified

== ENCOUNTER 2025-02-25 12:10 | Outpatient (REF) | payer MEDICARE, MEDICAID, SELFPAY ==
--- OUTSIDE RECORDS SUMMARY | 2025-02-25 17:16 | XMS_ITS | Clinical Summary ---
Author Organization [facility] Address [address] [place] [phone] Phone Care Team Providers Care Admissions Consultant Name Role Phone Yanet Ramirez MD Primary Care Prov ider Allergies Active Allergy Reactions Criticality Noted Date Comments Carbamazepine 10/20/2017 Albuterol Sulfate 10/20/2017 Medications Medication-Free TextIndications:Ty lenol with something else Indications: Tylenol with something else Active OMEPRAZOLE ORAL Acti ve CHOLECALCIFEROL, VITAMIN D3, (VITAMIN D3 ORAL) Ac tive multivitamins capsule Active FEXOFENADINE HCL (ALVA ORAL) Activ e montelukast (SINGULAIR) 10 mg tablet Active ondansetron (ZOFRAN) 4 MG tablet Active ondansetron (ZOFRAN-ODT) 4 MG disintegrating tablet Take 1 tablet (4 mg total) by mouth every 8 (eight) hours as needed for nausea. 8 tablet Active Social History Tobacco Use Types Packs/Day Years Used Date Smoking Tobacco: Never Smokeless Tobacco: Never Alcohol Use Standard Drinks/Week Comments No 0 (1 standard drink = 0.6 oz pur e alcohol) Education Answer Date Recorded Are you interested in more education? Not on toni e 11/17/2022 Are you concerned about learning? Not on file 11/17/2022 No 11/17/2022 No 11/17/2022 Digital Access Answer Date Recorded No 12/15/2022 No 12/15/2022 No 12/15/2022 Reliable internet access at home? Not on file 12/15/2022 Device with a working camera? Not on file Intimate Partner Violence Answer Date R ecorded Are you denied basic needs s uch as food, clothing, or medical care? No 02/18/2024 In the past 12 months have y ou been in a relationship with a person who hurts, threatens, or tries to control you? No 02/18/2024 Are you denied basic needs s uch as food, clothing, or medical care? No 02/18/2024 In the past 12 months have y ou been in a relationship with a person who hurts, threatens, or tries to control you? No 02/18/2024 Comments No Sex and Gender Information Value Date Recorded Sex Assigned at Female 01/29/2018 10:05 AM EDT Legal Sex Female 9:19 PM EDT Gender Identity Female 01/29/2018 10:05 AM EDT Sexual Orientation Not on file Last Filed Vital Signs Vital Sign Reading Time Taken Comments Blood Pressure 103/68 02/18/2024 10:35 AM EDT Pulse 56 02/18/2024 10:35 AM EDT Temperature 36.2 C (97.2 F) 02/18/2024 10:35 AM EDT Respiratory Rate 16 02/18/2024 10:35 AM EDT Oxygen Saturation 100% 02/18/2024 10:35 AM EDT Inhaled Oxygen Concentration - - Weight 52.6 kg (116 lb) 02/18/2024 8:16 AM EDT Height 157.5 cm (5' 2 ) 02/18/2024 8:16 AM EDT Body Mass Index 21.22 02/18/2024 8:16 AM EDT Plan of Treatment Health Maintenance Due Date Last Done Comments DEPRESSION SCREENING 1994 HEPATITIS C SCREENING 2000 HIV ONE-TIME SCREENING (18-6 5 YEARS) 2000 PAP SMEAR 2003 MAMMOGRAM 2022 Adult Td,Tdap Booster 04/09/2023 04/09/2013 COVID-19 VACCINE (2 - 2023-2 5 season) 2024 11/13/2020 PNEUMOCOCCAL VACCINES (0-49 years) Aged Out 2013 No longer eligible based on patient's age to complete this topic SMOKING STATUS SCREENING (On ce After 26 Yrs) Completed 03/21/2021 HEPATITIS A VACCINES Aged Out No long er eligible based on patient's age to complete this topic HIB VACCINES Aged Out No longer eligi ble based on patient's age to complete this topic MENINGOCOCCAL VACCINES (ACWY) Aged Out No longer eligible based on patient's age to complete this topic MENINGOCOCCAL VACCINES (B) Aged Out N o longer eligible based on patient's age to complete this topic Medical Devices Not on file Insurance MEDICARE PART A & B [facility] MEDICARE PART A & B [place] [facility] B Member Subscriber Plan / Payer (Ef fective 2005-Present) Name:Radha Bledsoe Member ID:[id number] Relation to Subscriber:Self Name:Radha Bledsoe Subscriber ID:[id number] Payer ID:[id number] Group ID:Not on file Type:Medicare Address: [employer] [id number] [place] MEDIC[place] PART A & B [facility] & [place] HEALTH Care Teams Admissions Consultant Relationship Specialty Start Date End Date Yanet Ramirez MD [address] [place] [id number] PCP - General Internal Medicine 02/18/24 Additional Source Comments The information contained in this document represents components of the legal health record. It is not the complete legal health record.[facility]
== END 2025-02-25 12:11 | disposition home or self-care (01) ==
LOC: HO.LNP 12:10
PROVIDERS: PCP Internal Medicine; Visit Provider Physician Assistant Medical
DX: N89.8 Other specified noninflammatory disorders of vagina (principal); B37.0 Candidal stomatitis; N39.0 Urinary tract infection, site not specified; R10.30 Lower abdominal pain, unspecified; Z13.89 Encounter for screening for other disorder
CPT/HCPCS: 81003; 87086; 99212

== ENCOUNTER 2025-03-11 14:12 | Outpatient (AMB) | payer MEDICARE, MEDICAID, SELFPAY ==
[2025-03-11 14:21] VITALS: BP 98/60; PULSE 67; TEMP 36.8; O2SAT 98; BMI 23.0
--- NOTE | 2025-03-11 14:21 | AM.OFFWIN_ITS ---
Intake Vital Signs 03/11/25 14:21 Height 5 ft 1 in Weight 122 lb BMI 23.0 BP 98/60 Blood Pressure Location Lt brachial Position Sitting Pulse 67 Pulse Source Pulse Oximeter Temp 98.2 F Temp Source Oral Pulse Oximetry (%) 98 Oxygen Delivery Method Room Air Intake Visit Reasons: EP Vaginal discharge, mouth thrush,abx didntwork Intake Note: * presents with unresolved thrush also c/o vaginal discharge and itch after completing abx Patient Tobacco Use Status: Never used Tobacco Allergies albuterol (From VENTOLIN HFA) Allergy (Unknown, Verified 03/11/25 14:23) UNKNOWN carbamazepine (From TEGRETOL) Allergy (Unknown, Verified 03/11/25 14:23) UNKNOWN Do you need a note to return to daycare/school/sports/work: No HPI HPI Comments History of Present Illness Details History of Present Illness - The patient is a 44-year-old female pr esenting with her mother who is her caregiver and giving the history for vaginal pruritus and discharge. - She was seen here in the beginning of February with what they thought was a yeast infection and thrush. - She was given Diflucan and Nystatin an d she had no resolution of the symptoms. - The patient reports persistent itching in the vaginal area accompanied by a discharge. - There is no associated dysuria or burn ing sensation during urination. - The patient has a history of oral disc omfort with white patches observed in the oral cavity. - The patient experiences dysmenorrhea, with reports of abdominal pain during menstruation. - She has not had a fever and Mom is uns ure of abd pain. Physical Exam General: Cooperative, healthy appearing, comfortable, no acute distress and well developed Orientation: Patient oriented x3 Mouth: Whitish coating noted on the tip of the tongue. Respiratory: Normal respiratory effort and able to speak in complete sentences. Clear to auscultation bilaterally Cardiovascular: Regular rate and rhythm. Normal S1 and S2 GI: Normal to inspection. Soft to palpation and nontender Pelvis: No erythema or swelling to the labia. Discharge noted on the vaginal vault and at the introitus. No bimanual exam was performed. Skin: No rashes or lesions noted Patient was informed and verbally consented to the use of an ambient scribe for clinic note documentation during this visit. [facility] Medical History (Updated 01/05/25 @ 16:02 by Jyotsna Morales NP) Acute respiratory disease Cognitive developmental delay Epilepsy Social History Patient Tobacco Use Status: Never used Tobacco Review of Systems Const All systems reviewed & are unremarkable except as noted in HPI and below Physical Exam Vital Signs: Last Vital Signs Temp 98.2 F 03/11/25 14:21 Pulse 67 03/11/25 14:21 BP 98/60 03/11/25 14:21 Pulse Ox 98 03/11/25 14:21 Oxygen Delivery Method Room Air 03/11/25 14:21 BMI result Body Mass Index 23.0 Assessment & Plan Assessment & Plan (1) Thrush, oral: Code(s): B37.0 - Candidal stomatitis (2) Vaginal discharge: Code(s): N89.8 - Other specified noninflammatory disorders of vagina Plan Most likely yeast vs BV Pt has never had a pelvic exam in the past and has anxiety about vaginal exams Mom and JAY Johnson were present for the exam and swab was done Plan - clotimazole troches TID for 7 days for thrush - A vaginal swab will be performed to check for bacterial infection. - will call with the results and treat the results - Follow up with bridal sales consultant Orders: Orders Bacterial Vaginosis Panel Today N89.8 - Other specified noninflammatory disorders of vagina Medications: New clotrimazole 10 mg mucous membrane TID 21 tabs 0RF 7 days Coding Level of Care Code Est Pt Level 4 (87809) Diagnoses Thrush, oral B37.0 Vaginal discharge N89.8
--- OUTSIDE RECORDS SUMMARY | 2025-03-11 15:09 | XMS_ITS | Clinical Summary ---
Author Organization [facility] Address [address] [place] [phone] Phone Care Team Providers Care Call Center Trainer Name Role Phone Yanet Ramirez MD Primary [...] file Insurance MEDICARE PART A & B [facility] MEDICARE PART A & B [place] [facility] B Member Subscriber Plan / Payer (Ef fective 2005-Present) Name:Radha Bledsoe Member ID:[id number] Relation to Subscriber:Self Name:Radha Bledsoe Subscriber ID:[id number] Payer ID:[id number] Group ID:Not on file Type:Medicare Address: [employer] [address] [place] MEDICARE PART A & B [facility] & [place] B HEALTH Care Teams Call Center Trainer Relationship Specialty Start Date End Date Yanet Ramirez MD [address] [place] [phone] PCP - General Internal Medicine 02/18/24 Additional Source Comments The information contained in this document represents components of the legal health record. It is not the complete legal health record.[facility]
== END 2025-03-11 15:47 | disposition home or self-care (01) ==
PROVIDERS: PCP Internal Medicine; Visit Provider Physician Assistant Medical
DX: B37.0 Candidal stomatitis (principal); N89.8 Other specified noninflammatory disorders of vagina

== ENCOUNTER 2025-03-11 14:12 | Outpatient (REF) | payer MEDICARE, MEDICAID, SELFPAY ==
--- OUTSIDE RECORDS SUMMARY | 2025-03-11 16:10 | XMS_ITS | Clinical Summary ---
Author Organization [employer] Address [address] [facility] [address] [place] [address] Care Team Providers Care Lineman Apprentice Name Role Phone Unavailable Primary Care Provider [...] Department Care Team Description 01/02/2025 Outside Procedure [facility] [address] [place] [address] Robert, Adelita, OD Hyperopia of right eye (Primary Dx) 01/01/2025 9:15 AM EDT Office Visit [facility] [address] [place] [address] Robert, Adelita, OD Regular astigmatism of both [...] Most Recently Relevant to Health Maintenance Insurance [facility] STANDARD MEDICARE [place] AD[place]
[2025-03-11 21:13] LABS: Bacterial Vaginosis PCR NEGATIVE (Negative); Candida Group PCR NOT DETECTED (Not Detect); Candida glab krusei PCR NOT DETECTED (Not Detect); Trichomonas vaginalis PCR NOT DETECTED (Not Detect)
== END 2025-03-11 14:13 | disposition home or self-care (01) ==
LOC: HO.LAB 14:12
PROVIDERS: PCP Internal Medicine; Visit Provider Physician Assistant Medical
DX: B37.0 Candidal stomatitis (principal); N89.8 Other specified noninflammatory disorders of vagina; Z11.2 Encounter for screening for other bacterial diseases
CPT/HCPCS: 81515; 99212

== ENCOUNTER 2025-03-27 13:42 | Outpatient (AMB) | payer MEDICARE, MEDICAID, SELFPAY ==
[2025-03-27 13:47] VITALS: BP 94/61; PULSE 72; TEMP 36.5; O2SAT 100; BMI 22.7
--- NOTE | 2025-03-27 13:47 | AM.OFFWIN_ITS ---
Intake Vital Signs 03/27/25 13:47 Height 5 ft 1 in Weight 120 lb BMI 22.7 BP 94/61 Blood Pressure Location Lt brachial Position Sitting Pulse 72 Pulse Source Pulse Oximeter Temp 97.7 F Temp Source Oral Pulse Oximetry (%) 100 Oxygen Delivery Method Room Air Intake Visit Reasons: EP headache,fever,ear ache Intake Note: headache, fevers, fatigue, LT ear pain Patient Tobacco Use Status: Never used Tobacco Allergies albuterol (From VENTOLIN HFA) Allergy (Unknown, Verified 03/27/25 13:54) UNKNOWN carbamazepine (From TEGRETOL) Allergy (Unknown, Verified 03/27/25 13:54) UNKNOWN Do you need a note to return to daycare/school/sports/work: No HPI HPI Comments History of Present Illness Details History of Present Illness - The patient is a 44-year-old female pr esenting with headache and ear discharge and urinary complaints. - The headache and ear discharge started two days ago, with the discharge being light-colored, indicating possible infection. - Fever and body aches were noted, but t he exact fever temperature was not recorded. - The patient has a history of ear tube placement due to chronic drainage issues. - Urinary symptoms included bad-smelling urine and burning with urination, denies blood in urine or low back pain. Physical Exam General: Cooperative, healthy appearing, comfortable, no acute distress and well developed Orientation: Patient oriented x3 Limitations: No limitations Head: Normal to inspection Ears: Hearing grossly normal bilaterally, EAC right is normal, EAC on left has purulent material and is tender Nose: Normal External nose present Face and sinus: Normal facial exam Eyes: Appearance normal, both eyes and all related structures Neck: Normal visual inspection and Yes full ROM Respiratory: Normal respiratory effort and able to speak in complete sentences. Skin: No rashes or lesions noted Neuro: Patient oriented x3 Extremities: Normal to inspection PFSH Medical History (Updated 03/27/25 @ 14:09 by Maricarmen Garzon PA-C) Acute respiratory disease Cognitive developmental delay Epilepsy Social History Patient Tobacco Use Status: Never used Tobacco Review of Systems Const All systems reviewed & are unremarkable except as noted in HPI and below Physical Exam Vital Signs: Last Vital Signs Temp 97.7 F 03/27/25 13:47 Pulse 72 03/27/25 13:47 BP 94/61 03/27/25 13:47 Pulse Ox 100 03/27/25 13:47 Oxygen Delivery Method Room Air 03/27/25 13:47 BMI result Body Mass Index 22.7 Assessment & Plan Assessment & Plan (1) Otitis externa: Code(s): H60.90 - Unspecified otitis externa, unspecified ear Qualifiers: Chronicity: acute Laterality: left Otitis externa type: diffuse Qualified Code(s): H60.312 - Diffuse otitis externa, left ear Plan: Patient was informed and verbally consented to the use of an ambient scribe for clinic note documentation during this visit. 1. Otitis Externa - Ear drops prescribed for the left ear, to be administered four times daily for one week. - Advised to monitor symptoms and seek further evaluation if no improvement. (2) Symptoms of urinary tract infection: Code(s): R39.9 - Unspecified symptoms and signs involving the genitourinary system Plan: 2. Urinary Tract Infection - Urinalysis requested to confirm diagnosis of urinary tract infection. - Body aches potentially linked to urinary tract infection symptoms. - UA with no leuks, neg nitrites, + blood. - Will treat based on symptoms Orders: Orders Urine Culture Today N39.0 - Urinary tract infection, site not specified Medications: New cyeagybx-ielagyino-NN 3.5-10,000-1 mg/mL-unit/mL-% 4 drps otic (ear) left QID 10 mL 0RF 7 days cefuroxime axetil 500 mg PO Q12H 10 tabs 0RF Coding Level of Care Code New Pt Level 4 (66550) Diagnoses Acute diffuse otitis externa of left ear H60.312 Chronicity: acute Laterality: left Otitis externa type: diffuse Symptoms of urinary tract infection R39.9
--- OUTSIDE RECORDS SUMMARY | 2025-03-27 14:11 | XMS_ITS | Clinical Summary ---
Author Organization [address] Address [address] [place] [phone] Phone Care Team Providers Care Channeler Outsole Name Role Phone Yante Hodges MD Primary Care Prov ider Allergies [...] NECESARIO FOR RHINITIS 48 mL 5 Active ondansetron ODT (ZOFRAN-ODT) 4 mg [...] moderate pain. 60 tablet 1 5 Active Vitamin D3 25 mcg (1,000 unit) tablet TAKE 1 TABLET BY MOUTH ONCE DAILY 90 tablet 1 5 Active Active Problems Problem [...] complete prevpac Repeat dx on [place] [facility] [place]. Treated with recurrence 04/2015 ? Treatment Third or 4th regimen prescribe 07/05/15 levaquin 250bid, amoxicillin 100mg bid and omeprazole 20mg BID X14 days Legally blind 05/24/2024 Wears hearing aid in both ears 02/07/2024 Acute stress disorder 04/07/2022 Frequent headaches 03/24/2021 Overview (05/24/2024): Dr Vasquez History of COVID-19 07/29/2020 Seizure disorder ([facility] V24, [facility] V28) 11/20 Overview (05/24/2024): Most recently 2 01/2021, first ones since 2013 Perennial allergic conjunctivitis of both eyes 1 08/17/2017 Perennial allergic rhinitis 06/17/2018 Sensory hearing loss 03/28/2016 Overview (05/24/2024): 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 Vitamin D deficiency 03/27/2014 Easy bruising 03/24/2014 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, [facility]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 Overview (05/24/2024): Diagnosed incidentally [...] Encounters Date Type Department Care Team Description 03/10/2025 Telephone Obstetrics and Gynecology [address] [phone] Padmini Kennedy MD 02/25/2025 Telephone Adult Medicine [address] [phone] Yanet Hodges MD 01/29/2025 Telephone Adult Medicine [address] [phone] Yanet Hodges MD 12/26/2024 [facility] [address] [phone] Yanet Hodges MD from Last 3 Months Immunizations Name Administration Dates Next Due Influenza Quadravalent, MDCK , 0.5ml, preservative free (Flucelvax) 6mo and older 04/12/2021,05/07/2019,03/29/2018 Influenza Quadravalent, chelsey mbinant, 0.5ml, preservative free (Flublok) 18yo and older 05/02/2020 Pneumococcal polysaccharide 23 valent (Pneumovax 23) 2yo and older 03/24/2014 Tdap Tetanus diptheria acell ular pertussis (Boostrix; Adacel) 7yo and older 04/09/2013 Surgical History Surgery Date Site/Laterality Comments TONSILLECTOMY 1992 PROCEDURE: HISTORICAL TONSILLECTOMY TYMPANOSTOMY TUBE PLACEMENT PROCEDURE: HISTORICAL PE TUBES Medical History Medical History Date Comments Epilepsy, nonconvulsive ([facility] V24, [facility] V28) DX:Epilepsy, nonconvulsive ( HCC) Helicobacter pylori (H. pylori) DX:Helicobacter pylori (H. pylori) Development delay 10/12/2012 DX:Development delay Langerhans' cell histiocytos is ([facility] V24, [facility]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 DX:Langerhans' cell histioc ytosis (HCC) Easy bruising 03/24/2014 DX:Easy bruising Vitamin D deficiency 03/27/2014 DX:Vitamin D deficiency Pain, abdominal 02/08/2015 DX:Pain, abdomin al hypoxic-ischemic encephalopathy ([facility] V28) 11/15/2015 DX: hypoxic-isch emic encephalopathy Legally blind DX:Legally blind Frequent headaches 03/24/2021 DX:Frequent h eadaches; COMMENT: Dr Vasquez Family History Medical History Relation Name Comments Glaucoma Aunt paternal aunt No Known Problems Brother 1 No Known Problems Brother 2 Stroke Father dementia, [place] Heart attack Maternal Grandfather Diabetes Maternal Grandmother [...] care for your loved ones. For example, childcare attendant or elderly care for an older adult? [...] 77 11/18/2024 10:23 AM EDT Temperature 36.7 C (98.1 F) 11/12/2024 9:16 AM EDT Respiratory Rate 14 11/18/2024 10:23 AM EDT [...] 12:30 PM EDT Office Visit [facility] - [address] [phone] Yanet Hodges MD [address] [place] [address] 05/27/2025 4:30 PM EST Appointment Radiology Department - [address] [phone] Health Maintenance Due Date Last Done Comments Hepatitis B Vaccines (1 of 3 - 19+ 3-dose series) 2001 Cervical Cancer Screening: HPV 2003 Pneumococcal Vaccine: Pediatrics (0 to 5 Years) and At-Risk Patients (6 to 49 Years) (2 of 2 - PCV) 03/24/2015 03/24/2014 HIV Screening 07/01/2022 Hepatitis C Screening 07/01/2022 Medicare Annual Wellness Visit 07/01/2022 DTaP,Tdap,and Td Vaccines (2 - Td or Tdap) 04/09/2023 04/09/2013 Depression Screening 07/23/2024 Breast Cancer Screening 02/14/2025 02/14/2023 COVID-19 Vaccine (2 - 2024- season) 2025 11/13/2020 Influenza Vaccine (#1) 2025 , 05/02/2020, 05/07/2019, Additional history exists Social Influencers [...] Procedure Name Priority Date/Time Associated Diagnosis Comments ..LAB TO CALL RESULTS Routine 03/11/2025 3:17 PM EDT SCREENING MAMMOGRAPHY BI 2-VIEW BREAST INC CAD Routine 02/14/2023 9:25 AM EDT Encounter for screening mammogram for malignant neoplasm of breast from Last 3 Months or Most Recently Relevant to Health Maintenance Results * Lab use only - Non-affiliated results notification (03/11/2025 3:17 PM EDT) Other Topography unknown / Unknown us Historical Provider LAB BLOOD ORDERABLES Mickie l Result * SCREENING MAMMOGRAPHY BI 2-VIEW BREAST INC [...] Typically benign parenchymal asymmetries IMPRESSION: : 1. No mammographic evidence of [...] Documents on File Type Date Recorded Patient Field Application Engineer Expl anation Health Care Decision (hx) 03/04/2014 AD MCKENZIE DIRECTIVE Health Care Decision (hx) 03/04/2014 AD MCKENZIE DIRECTIVE Health Care Decision (hx) 02/28/2014 AD MCKENZIE DIRECTIVE Health Care Decision (hx) 02/28/2014 AD MCKENZIE DIRECTIVE Health Care Decision (hx) 02/26/2014 AD MCKENZIE DIRECTIVE Health Care Decision (hx) 02/26/2014 AD MCKENZIE DIRECTIVE Care Teams Channeler Outsole Relationship Specialty Start Date End Date Yanet Hodges MD [address] [place] [phone] PCP - General Internal Medicine 02/20/22
--- OUTSIDE RECORDS SUMMARY | 2025-03-27 14:11 | XMS_ITS | Clinical Summary ---
Author Organization [employer] Address [address] [facility] [address] [facility] [address] [place] [address] Care Team Providers Care Dynamometer Tester Engine Name Role Phone Unavailable Primary Care Provider [...] Care Team Description 01/02/2025 Outside Procedure [facility] OPTOMETRY [address] [place] [address] Robert, Adelita, OD Hyperopia of right eye (Primary Dx) 01/01/2025 9:15 AM EDT Office Visit [facility] OPTOMETRY [address] [place] [address] Robert, Adelita, OD Regular astigmatism of both [...] (2 - Td or Tdap) 04/09/2023 04/09/2013 Dental X-Ray: [facility]ings 01/02/2025 01/02/2024 COVID-19 Vaccine ( season) 2025 11/13/2020 Influenza Vaccine (#1) 2025 [...] Most Recently Relevant to Health Maintenance Insurance [facility] STANDARD MEDICARE [place]
--- OUTSIDE RECORDS SUMMARY | 2025-03-27 14:11 | XMS_ITS | Clinical Summary ---
Author Organization [facility] Address [address] [place] [phone] Phone Care Team Providers Care Automation Qa Analyst Name Role Phone Yanet Ramirez MD Primary [...] HEPATITIS C SCREENING 2000 HIV ONE-TIME SCREENING (18-65 YEARS) 2000 PAP SMEAR 2003 MAMMOGRAM 2022 Adult Td,Tdap Booster 04/09/2023 04/09/2013 INFLUENZA VACCINE (#1) 2025 9, 03/29/2018, 05/05/2015, Additional history exists COVID-19 VACCINE (2 - season) 2025 11/13/2020 PNEUMOCOCCAL VACCINES (0-49 years) Aged Out 03/24/2014 No longer eligible based on patient's age to complete this topic SMOKING STATUS SCREENING (Once After 26 Yrs) Completed 03/21/2021 HEPATITIS A [...] file Insurance MEDICARE PART A & B [facility] MEDICARE PART A & B Member Subscriber Plan / Payer (Ef fective 2005-Present) Name:Radha Bledsoe Member ID:[id number] Relation to Subscriber:Self Name:Radha Bledsoe Subscriber ID:[id number] Payer ID:[id number] Group ID:Not on file Type:Medicare Address: [email or web address] [id number] [place] A & B HEALTH MEDICARE PART A & [place] MEDICARE PART A & [place] Care Teams Automation Qa Analyst Relationship Specialty Start Date End Date Yanet Ramirez MD [address] [place] [address] [phone] PCP - General Internal Medicine 02/18/24 Additional Source Comments The information contained in this document represents components of the legal health record. It is not the complete legal health record.[facility]
== END 2025-03-27 14:29 | disposition home or self-care (01) ==
PROVIDERS: PCP Internal Medicine; Visit Provider Physician Assistant
DX: H60.312 Diffuse otitis externa, left ear (principal); R39.9 Unspecified symptoms and signs involving the genitourinary system; Z13.9 Encounter for screening, unspecified

== ENCOUNTER 2025-03-27 13:42 | Outpatient (REF) | payer MEDICARE, MEDICAID, SELFPAY | END 2025-03-27 13:43 | disposition home or self-care (01) | LOC: HO.LAB 13:42 | PROVIDERS: PCP Internal Medicine; Visit Provider Physician Assistant | DX: H60.312 Diffuse otitis externa, left ear (principal); R39.9 Unspecified symptoms and signs involving the genitourinary system; Z13.89 Encounter for screening for other disorder | CPT/HCPCS: 81003; 87086; 99202 ==